=== PATIENT | male | born 1970 | race Caucasian/White ===

== ENCOUNTER 2017-06-27 17:02 | Emergency (ER) | payer MEDICARE, OTHER ==
[~2017-06-27] VITALS: Ht 177.8 cm; Wt 110.0 kg
[~2017-06-27 17:02] MED LIST: CLOP75TA35 PO; DEXL30CA3 PO; DOXE150C2 PO; FENO134C PO; FLO0.4C PO; GABA-338 PO; HYT1T PO; INDO50CA PO; METH-603 PO; OLME20TA15 PO
[2017-06-27 17:11] VITALS: BP 116/85
== END 2017-06-27 18:00 | disposition home or self-care (01) ==
LOC: ER 17:04
DX: S30.21XA Contusion of penis, initial encounter (principal); G89.29 Other chronic pain; I10 Essential (primary) hypertension; M54.9 Dorsalgia, unspecified; Z86.73 Personal history of transient ischemic attack (TIA), and cerebral infarction without residual deficits; Z88.2 Allergy status to sulfonamides; Z79.01 Long term (current) use of anticoagulants; X58.XXXA Exposure to other specified factors, initial encounter; Y93.89 Activity, other specified; Y92.89 Other specified places as the place of occurrence of the external cause; Y99.8 Other external cause status
CPT/HCPCS: 99281

== ENCOUNTER 2017-09-18 09:22 | Day surgery (SDC) | payer MEDICARE ==
[~2017-09-18 09:22] MED LIST changes: +CEPH500C5 PO
[2017-09-18] MEDS ORDERED: LIDOcaine 2% 5ml jelly ONE (09:51)
[2017-09-18] MEDS ORDERED: CIPR-259 PO (14:25)
== END 2017-09-18 10:38 | disposition home or self-care (01) ==
LOC: WOUND CARE 09:22
PROVIDERS: ATTEND Surgery
DX: L97.811 Non-pressure chronic ulcer of other part of right lower leg limited to breakdown of skin (principal); I10 Essential (primary) hypertension; F10.10 Alcohol abuse, uncomplicated; F17.200 Nicotine dependence, unspecified, uncomplicated; Z86.73 Personal history of transient ischemic attack (TIA), and cerebral infarction without residual deficits
CPT/HCPCS: 11042; A6021; A6206; A6209; A6446

== ENCOUNTER 2017-09-25 08:40 | Day surgery (SDC) | payer MEDICARE ==
[~2017-09-25 08:40] MED LIST changes: -CEPH500C5 PO; +CIPR-259 PO; -DOXE150C2 PO; -FENO134C PO; -FLO0.4C PO; -HYT1T PO; -INDO50CA PO; -METH-603 PO
[2017-09-25] MEDS ORDERED: LIDOcaine 2% 5ml jelly ONE (09:26)
== END 2017-09-25 10:18 | disposition home or self-care (01) ==
LOC: WOUND CARE 08:40
PROVIDERS: ATTEND Surgery
DX: L97.812 Non-pressure chronic ulcer of other part of right lower leg with fat layer exposed (principal); I10 Essential (primary) hypertension; F10.10 Alcohol abuse, uncomplicated; F17.200 Nicotine dependence, unspecified, uncomplicated; Z86.73 Personal history of transient ischemic attack (TIA), and cerebral infarction without residual deficits
CPT/HCPCS: 11042; A6021; A6206; A6212

== ENCOUNTER 2017-10-01 08:45 | Day surgery (SDC) | payer MEDICARE ==
[2017-10-01] MEDS ORDERED: LIDOcaine 2% 5ml jelly ONE (09:35)
== END 2017-10-01 09:56 | disposition home or self-care (01) ==
LOC: WOUND CARE 08:45
PROVIDERS: ATTEND Surgery
DX: S81.801D Unspecified open wound, right lower leg, subsequent encounter (principal); I10 Essential (primary) hypertension; F10.10 Alcohol abuse, uncomplicated; F17.200 Nicotine dependence, unspecified, uncomplicated; Z86.73 Personal history of transient ischemic attack (TIA), and cerebral infarction without residual deficits; X58.XXXD Exposure to other specified factors, subsequent encounter
CPT/HCPCS: 15271; A6209; A6222; A6446; Q4131; A6250

== ENCOUNTER 2017-10-08 08:51 | Outpatient (CLI) | payer MEDICARE ==
[~2017-10-08 08:51] MED LIST changes: -CIPR-259 PO
[2017-10-08] MEDS ORDERED: LIDOcaine 2% 5ml jelly ONE (09:29)
== END 2017-10-08 10:07 | disposition home or self-care (01) ==
LOC: WOUND CARE 08:51 → EDSTATUS 09:00 → WOUND CARE 10:07
PROVIDERS: ATTEND Surgery
DX: S81.801D Unspecified open wound, right lower leg, subsequent encounter (principal); I10 Essential (primary) hypertension; F10.10 Alcohol abuse, uncomplicated; F17.200 Nicotine dependence, unspecified, uncomplicated; Z86.73 Personal history of transient ischemic attack (TIA), and cerebral infarction without residual deficits; X58.XXXD Exposure to other specified factors, subsequent encounter
CPT/HCPCS: 99215; A6021; A6206; A6209; A6446

== ENCOUNTER 2017-10-15 08:46 | Day surgery (SDC) | payer MEDICARE ==
[2017-10-15] MEDS ORDERED: LIDOcaine 2% 5ml jelly ONE (10:02)
== END 2017-10-15 10:26 | disposition home or self-care (01) ==
LOC: WOUND CARE 08:46
PROVIDERS: ATTEND Surgery
DX: S81.801D Unspecified open wound, right lower leg, subsequent encounter (principal); I10 Essential (primary) hypertension; F10.10 Alcohol abuse, uncomplicated; F17.200 Nicotine dependence, unspecified, uncomplicated; Z86.73 Personal history of transient ischemic attack (TIA), and cerebral infarction without residual deficits; X58.XXXD Exposure to other specified factors, subsequent encounter
CPT/HCPCS: 15271; A6206; A6209; A6446; Q4131

== ENCOUNTER 2017-10-23 08:52 | Outpatient (CLI) | payer MEDICARE ==
[2017-10-23] MEDS ORDERED: LIDOcaine 2% 5ml jelly ONE (09:37)
== END 2017-10-23 10:16 | disposition home or self-care (01) ==
LOC: WOUND CARE 08:52
PROVIDERS: ATTEND Surgery
DX: S81.801D Unspecified open wound, right lower leg, subsequent encounter (principal); I10 Essential (primary) hypertension; F10.10 Alcohol abuse, uncomplicated; F17.200 Nicotine dependence, unspecified, uncomplicated; Z86.73 Personal history of transient ischemic attack (TIA), and cerebral infarction without residual deficits; X58.XXXD Exposure to other specified factors, subsequent encounter
CPT/HCPCS: 99215; A6021; A6206; A6446

== ENCOUNTER 2017-10-30 08:36 | Day surgery (SDC) | payer MEDICARE | END 2017-10-30 10:04 | disposition home or self-care (01) | LOC: WOUND CARE 08:36 | PROVIDERS: ATTEND Surgery | DX: S81.801D Unspecified open wound, right lower leg, subsequent encounter (principal); I10 Essential (primary) hypertension; F10.10 Alcohol abuse, uncomplicated; F17.200 Nicotine dependence, unspecified, uncomplicated; Z86.73 Personal history of transient ischemic attack (TIA), and cerebral infarction without residual deficits; X58.XXXD Exposure to other specified factors, subsequent encounter | CPT/HCPCS: 97597; A6021; A6206; A6212 ==

== ENCOUNTER 2018-11-08 18:29 | Emergency (ER) | payer MEDICAID, MEDICARE, OTHER ==
[~2018-11-08] VITALS: Ht 179.1 cm; Wt 105.0 kg
[2018-11-08] MEDS ORDERED: CEPH250T PO (21:36)
[2018-11-08] MEDS ORDERED: CLIN150C2 PO (21:36)
[2018-11-08 21:42] VITALS: BP 120/68
== END 2018-11-08 21:43 | disposition home or self-care (01) ==
LOC: ER 18:31
DX: L03.115 Cellulitis of right lower limb (principal); R00.0 Tachycardia, unspecified; I10 Essential (primary) hypertension; G89.29 Other chronic pain; F17.200 Nicotine dependence, unspecified, uncomplicated; Z79.2 Long term (current) use of antibiotics; Z79.899 Other long term (current) drug therapy; Z88.2 Allergy status to sulfonamides; Z98.890 Other specified postprocedural states; Z86.73 Personal history of transient ischemic attack (TIA), and cerebral infarction without residual deficits; Z86.14 Personal history of Methicillin resistant Staphylococcus aureus infection
CPT/HCPCS: 99283

== ENCOUNTER 2020-01-30 14:58 | Emergency (ER) | payer MEDICAID ==
[~2020-01-30] VITALS: Ht 177.8 cm; Wt 102.7 kg
[2020-01-30 15:06] VITALS: BP 116/64
== END 2020-01-30 15:35 | disposition home or self-care (01) ==
LOC: ER 14:58
DX: S01.90XA Unspecified open wound of unspecified part of head, initial encounter (principal); I10 Essential (primary) hypertension; G89.29 Other chronic pain; Z86.73 Personal history of transient ischemic attack (TIA), and cerebral infarction without residual deficits; Z98.890 Other specified postprocedural states; Z88.2 Allergy status to sulfonamides; Z79.899 Other long term (current) drug therapy; W18.09XA Striking against other object with subsequent fall, initial encounter; Y93.E1 Activity, personal bathing and showering; Y92.89 Other specified places as the place of occurrence of the external cause; Y99.8 Other external cause status
CPT/HCPCS: 99281

== ENCOUNTER 2020-02-16 04:50 | Emergency (ER) | payer MEDICAID ==
[~2020-02-16] VITALS: Ht 177.8 cm; Wt 110.0 kg
[2020-02-16 05:43] VITALS: BP 122/85
== END 2020-02-16 05:44 | disposition home or self-care (01) ==
LOC: ER 04:51
DX: S01.81XD Laceration without foreign body of other part of head, subsequent encounter (principal); I10 Essential (primary) hypertension; G89.29 Other chronic pain; F17.200 Nicotine dependence, unspecified, uncomplicated; Z86.73 Personal history of transient ischemic attack (TIA), and cerebral infarction without residual deficits; Z98.890 Other specified postprocedural states; Z88.2 Allergy status to sulfonamides; Z79.899 Other long term (current) drug therapy; X58.XXXD Exposure to other specified factors, subsequent encounter
CPT/HCPCS: 99281

== ENCOUNTER 2020-02-22 08:37 | Emergency (ER) | payer MEDICAID ==
[~2020-02-22] VITALS: Ht 177.8 cm; Wt 102.6 kg
[2020-02-22] MEDS ORDERED: LIDOcaine 1% 30ml preserv. free vial IJ ONE (09:45)
[2020-02-22 10:02] VITALS: BP 215/135
[2020-02-22] MEDS ORDERED: CEPH250T PO (10:30)
[2020-02-22] MEDS ORDERED: DOXY100C76 PO (10:30)
== END 2020-02-22 10:39 | disposition home or self-care (01) ==
LOC: ER 08:37
DX: N48.21 Abscess of corpus cavernosum and penis (principal); I10 Essential (primary) hypertension; G89.29 Other chronic pain; Z86.73 Personal history of transient ischemic attack (TIA), and cerebral infarction without residual deficits; Z98.890 Other specified postprocedural states; Z88.2 Allergy status to sulfonamides; Z79.899 Other long term (current) drug therapy
CPT/HCPCS: 10060; 99283

== ENCOUNTER 2020-03-09 09:16 | Emergency (ER) | payer MEDICAID ==
[~2020-03-09] VITALS: Ht 177.8 cm; Wt 99.1 kg
[2020-03-09 09:20] VITALS: BP 135/85
[2020-03-09] MEDS ORDERED: CEPH-572 PO (10:02)
[2020-03-09] MEDS ORDERED: DOXY-1 PO (10:02)
== END 2020-03-09 10:15 | disposition home or self-care (01) ==
LOC: ER 09:17
DX: N48.21 Abscess of corpus cavernosum and penis (principal); I10 Essential (primary) hypertension; G89.29 Other chronic pain; Z86.73 Personal history of transient ischemic attack (TIA), and cerebral infarction without residual deficits; Z79.899 Other long term (current) drug therapy; Z88.2 Allergy status to sulfonamides; Z79.2 Long term (current) use of antibiotics
CPT/HCPCS: 99283

== ENCOUNTER 2020-12-25 06:37 | Emergency (ER) | payer MEDICAID ==
[~2020-12-25] VITALS: Ht 177.8 cm; Wt 104.5 kg
[~2020-12-25 06:37] MED LIST changes: +CLOP75TA34 PO; -CLOP75TA35 PO
[2020-12-25] MEDS ORDERED: normal saline 1000ML IV soln IVB ONE (07:45)
[2020-12-25] MEDS ORDERED: phenobarbital inj 260 MG in normal saline 100ml IV soln 100 ML IV ONE (07:45)
[2020-12-25] MEDS ORDERED: thiamine inj. 100 MG in normal saline 100ml IV soln 99 ML IV ONE (07:45)
[2020-12-25] MEDS ORDERED: magnesium 2GM in 50ml NS 50 ML IV ONE (07:45)
[2020-12-25] MEDS ORDERED: thiamine 100mg/ml 2ml inj. IV ONE (08:00)
[2020-12-25 08:46] LABS: BASOPHILS # (AUTO) 0.1 X10'3 (0-0.2); BASOPHILS % (AUTO) 0.6 % (0-1); EOSINOPHILS % (AUTO) 0.4 % (0-6); HEMATOCRIT 42.1 % (42.0-52.0); HEMOGLOBIN 14.4 g/dl (14.0-17.9); LYMPHOCYTES # (AUTO) 1.7 X10'3 (1.1-4.8); LYMPHOCYTES % (AUTO) 16.3 % (21-51); MEAN CORPUSCULAR HEMOGLOBIN 31.5 PG (27.0-31.0); MEAN CORPUSCULAR HGB CONC 34.3 g/dL (33.0-36.5); MEAN PLATELET VOLUME 7.6 FL (7.4-10.4); MONOCYTES # (AUTO) 0.7 X10'3 (0-0.9); NEUTROPHILS # (AUTO) 7.9 X10'3 (1.8-7.7); NEUTROPHILS % (AUTO) 75.7 % (42-75); PLATELET COUNT 348 X10'3 (140-440); RED BLOOD COUNT 4.58 X10'6 (4.70-6.10); RED CELL DISTRIBUTION WIDTH 14.3 % (11.5-14.5); WHITE BLOOD COUNT 10.4 X10'3 (4.5-11.0)
[2020-12-25 08:54] LABS: ALANINE AMINOTRANSFERASE 40 U/L (12-78); ALBUMIN 3.9 G/DL (3.4-5.0); ALKALINE PHOSPHATASE 87 IU/L (46-116); ANION GAP 14 (8-16); ASPARTATE AMINO TRANSFERASE 38 U/L (10-37); BILIRUBIN,TOTAL 0.4 MG/DL (0.1-1.0); BLOOD UREA NITROGEN 27 MG/DL (7-18); BUN/CREATININE RATIO 26.2 (5.4-32.0); CHLORIDE 97 MMOL/L (99-107); CREATININE 1.03 MG/DL (0.60-1.10); ETHANOL < 0.010 GM/DL (0.0-0.010); GLUCOSE 96 MG/DL (70-104); MAGNESIUM 1.6 MG/DL (1.5-2.4); SODIUM 135 MMOL/L (135-145); TOTAL PROTEIN 7.8 G/DL (6.4-8.2); eGFR 76 ML/MIN
[2020-12-25 08:56] LABS: POTASSIUM 4.4 MMOL/L (3.5-5.1)
[2020-12-25] MEDS ORDERED: phenobarbital inj 130 MG in normal saline 100ml IV soln 100 ML IV ONE ×2 (09:30→10:10)
[2020-12-25] MEDS ORDERED: acetaminophen 325mg tablet PO ONE (09:45)
[2020-12-25] MEDS ORDERED: hydrALAZINE 20mg/ml inj. IV ONE (10:15)
[2020-12-25 13:06] VITALS: BP 141/100
== END 2020-12-25 13:08 | disposition home or self-care (01) ==
LOC: ER 06:38
DX: F10.230 Alcohol dependence with withdrawal, uncomplicated (principal); R11.2 Nausea with vomiting, unspecified; I10 Essential (primary) hypertension; G89.29 Other chronic pain; Z86.73 Personal history of transient ischemic attack (TIA), and cerebral infarction without residual deficits; Z98.890 Other specified postprocedural states; Z88.2 Allergy status to sulfonamides; Z79.899 Other long term (current) drug therapy; Y90.5 Blood alcohol level of 100-119 mg/100 ml
CPT/HCPCS: 36415; 80053; 80320; 83735; 85025; 93005; 96365; 96366; 96367; 96368; 96375; 99285; J0360; J2560; J3411; J3475; J7030

== ENCOUNTER 2022-02-26 10:05 | Emergency (ER) | payer MEDICAID ==
[~2022-02-26] VITALS: Ht 175.3 cm; Wt 107.0 kg
[2022-02-26] MEDS ORDERED: normal saline 1000ML IV soln IVB ONE (11:40)
[2022-02-26 11:59] LABS: BASOPHILS # (AUTO) 0.1 X10'3 (0-0.2); BASOPHILS % (AUTO) 0.8 % (0-1); EOSINOPHILS # (AUTO) 0.2 X10'3 (0-0.9); EOSINOPHILS % (AUTO) 2.4 % (0-6); HEMOGLOBIN 14.8 g/dl (14.0-17.9); LYMPHOCYTES # (AUTO) 2.1 X10'3 (1.1-4.8); LYMPHOCYTES % (AUTO) 31.6 % (21-51); MEAN CORPUSCULAR HEMOGLOBIN 33.3 PG (27.0-31.0); MEAN CORPUSCULAR HGB CONC 34.4 g/dL (33.0-36.5); MEAN CORPUSCULAR VOLUME 96.6 FL (78-98); MEAN PLATELET VOLUME 7.6 FL (7.4-10.4); MONOCYTES % (AUTO) 14.4 % (2-12); NEUTROPHILS # (AUTO) 3.4 X10'3 (1.8-7.7); NEUTROPHILS % (AUTO) 50.8 % (42-75); PLATELET COUNT 281 X10'3 (140-440); RED BLOOD COUNT 4.45 X10'6 (4.70-6.10); RED CELL DISTRIBUTION WIDTH 14.1 % (11.5-14.5); WHITE BLOOD COUNT 6.8 X10'3 (4.5-11.0)
[2022-02-26 12:15] LABS: ALANINE AMINOTRANSFERASE 25 U/L (12-78); ALBUMIN 3.3 G/DL (3.4-5.0); ALBUMIN/GLOBULIN RATIO 0.9 (1.1-1.5); ALKALINE PHOSPHATASE 85 IU/L (46-116); ANION GAP 9 (8-16); ASPARTATE AMINO TRANSFERASE 19 U/L (10-37); BILIRUBIN,TOTAL 0.3 MG/DL (0.1-1.0); BLOOD UREA NITROGEN 10 MG/DL (7-18); BUN/CREATININE RATIO 12.7 (5.4-32.0); CHLORIDE 102 MMOL/L (99-107); CREATININE 0.79 MG/DL (0.60-1.10); GLUCOSE 102 MG/DL (70-104); LIPASE < 50 U/L (73-393); POTASSIUM 3.7 MMOL/L (3.5-5.1); SODIUM 136 MMOL/L (135-145); TOTAL PROTEIN 6.9 G/DL (6.4-8.2); eGFR > 90 ML/MIN
--- NOTE | 2022-02-26 12:48 | NUR ---
PT WAS OFFERED AN URINAL FOR A UA SPECIMEN. PT REFUSED THE URINAL, AND ASKED TO USE THE BATHROOM. A HAT AND A SPECIMEN CUP WERE PROVIDED FOR THE PT, AND A DARK SPECIMEN WAS COLLECTED. PT STATES THAT THE SPECIMEN IS "URINE", HOWEVER IT SMELLS, AND APPEARS LIKE STOOL. WILL AWAIT LAB RESULTS BEFORE PROCEEDING WITH ALTERNATIVE METHODS TO OBTAIN URINE.
[2022-02-26 12:50] LABS: CLARITY,URINE CLEAR (Clear); GLUCOSE, URINE NEGATIVE (Neg); KETONES,URINE TRACE mg/dl (Neg); LEUKOCYTE ESTERASE ,URINE NEGATIVE (Neg); OCCULT BLOOD,URINE TRACE-INTACT (Neg); PROTEIN,URINE 100 mg/dl (Neg)
[2022-02-26 12:52] VITALS: BP 173/97
[2022-02-26 12:53] LABS: COLOR,URINE DARK YELLOW (Yellow); UA COLLECTION TYPE VOIDED
[2022-02-26 12:55] LABS: NITRITES, URINE NEGATIVE (Neg)
[2022-02-26 12:57] LABS: BACTERIA,URINE FEW /HPF (Neg); MUCUS STRANDS MODERATE /LPF (Neg); SQUAMOUS EPITHELIAL CELL,UR FEW /LPF (FEW)
--- NOTE | 2022-02-26 13:19 | NUR ---
COMFIRMED UA, AND RESULTS WERE RECIEVED. WILL ATTEMPT TO OBTAIN A STOOL SPECIMEN.
--- NOTE | 2022-02-26 13:54 | NUR ---
PT WAS GIVEN ANOTHER HAT FOR THE TOILET, AND WAS INSTRUCTED TO PROVIDE A STOOL SAMPLE TO SEND TO LAB. CONTENTS OBTAINED, AND SENT TO LAB. WILL WAIT FOR THE RESULTS.
[2022-02-26] MEDS ORDERED: azithromycin 250mg tablet PO ONE (14:15)
[2022-02-26 14:19] LABS: C DIFF SPECIMEN=DIARRHEA? ACCEPTABLE; C DIFFICILE TOXINS A&B NEGATIVE (Neg)
== END 2022-02-26 15:32 | disposition home or self-care (01) ==
LOC: ER 10:06
DX: I10 Essential (primary) hypertension (principal)
CPT/HCPCS: 36415; 80053; 81001; 83690; 85025; 87045; 87046; 87088; 87324; 87449; 96360; 99283; J7030

== ENCOUNTER 2024-02-18 09:28 | Outpatient (CLI) | payer MEDICAID | END 2024-02-18 23:59 | disposition home or self-care (01) | LOC: MRI02 09:28 | PROVIDERS: ATTEND Neuromusculoskeletal Medicine & OMM | DX: J32.0 Chronic maxillary sinusitis (principal); G44.321 Chronic post-traumatic headache, intractable | CPT/HCPCS: 70551 ==

== ENCOUNTER 2024-05-12 01:17 | Inpatient (IN) | payer MEDICAID ==
[2024-05-12] VITALS (8 sets, daily range): BP systolic 132–190; BP diastolic 78–128; PULSE 92–108; RESP 12–20; TEMP 97.7–98.9; O2SAT 91–98
[~2024-05-12] VITALS: Ht 175.3 cm; Wt 110.0 kg
[2024-05-12 01:48] LABS: BASOPHILS # (AUTO) 0.1 X10'3 (0-0.2); BASOPHILS % (AUTO) 1.2 % (0-1); EOSINOPHILS % (AUTO) 0.4 % (0-6); HEMATOCRIT 40.2 % (42.0-52.0); HEMOGLOBIN 13.1 g/dl (14.0-17.9); LYMPHOCYTES # (AUTO) 2.2 X10'3 (1.1-4.8); LYMPHOCYTES % (AUTO) 18.2 % (21-51); MEAN CORPUSCULAR HEMOGLOBIN 32.4 PG (27.0-31.0); MEAN CORPUSCULAR HGB CONC 32.6 g/dL (33.0-36.5); MEAN CORPUSCULAR VOLUME 99.1 FL (78-98); MEAN PLATELET VOLUME 7.5 FL (7.4-10.4); MONOCYTES # (AUTO) 0.7 X10'3 (0-0.9); MONOCYTES % (AUTO) 5.5 % (2-12); NEUTROPHILS # (AUTO) 8.9 X10'3 (1.8-7.7); NEUTROPHILS % (AUTO) 74.7 % (42-75); PLATELET COUNT 290 X10'3 (140-440); RED BLOOD COUNT 4.06 X10'6 (4.70-6.10); RED CELL DISTRIBUTION WIDTH 16.3 % (11.5-14.5); WHITE BLOOD COUNT 11.9 X10'3 (4.5-11.0)
[2024-05-12 02:11] LABS: ALANINE AMINOTRANSFERASE 29 U/L (12-78); ALBUMIN 3.4 G/DL (3.4-5.0); ALBUMIN/GLOBULIN RATIO 0.9 (1.1-1.5); ALKALINE PHOSPHATASE 101 IU/L (46-116); ANION GAP 14 (8-16); ASPARTATE AMINO TRANSFERASE 35 U/L (10-37); BILIRUBIN,TOTAL 0.3 MG/DL (0.1-1.0); BLOOD UREA NITROGEN 18 MG/DL (7-18); BUN/CREATININE RATIO 10.2 (10.0-20.0); CALCIUM 8.7 MG/DL (8.5-10.1); CHLORIDE 101 MMOL/L (99-107); CREATININE 1.76 MG/DL (0.60-1.10); GLUCOSE 105 MG/DL (70-104); POTASSIUM 3.9 MMOL/L (3.5-5.1); PRO BRAIN NATRIURETIC PEPTIDE 5254 PG/ML (0-125); SODIUM 138 MMOL/L (135-145); TOTAL CARBON DIOXIDE 22.9 MMOL/L (24-32); TOTAL PROTEIN 7.4 G/DL (6.4-8.2); eCRCL 47 ML/MIN; eGFR 40 ML/MIN
[2024-05-12] MEDS ORDERED: heparin 25,000 UNIT/250ml bag 250 ML IV PRN (02:55)
[2024-05-12] MEDS ORDERED: heparin 10,000 units/1 ML INJ IV ONE ×2 (02:55→03:00)
[2024-05-12] MEDS ORDERED: heparin 10,000 units/1 ML INJ IV PRN (03:00)
[2024-05-12 03:05] LABS: ETHANOL 170 MG/DL (<10); MAGNESIUM 2.1 MG/DL (1.5-2.4)
[2024-05-12 03:26] LABS: APTT 29 SECONDS (22-32); INR 1.1 INR
[2024-05-12] MEDS ORDERED: magnesium Cl slow-release 64mg tablet PO PRN (04:00)
[2024-05-12] MEDS ORDERED: magnesium hydroxide 30ml (MOM) UD suspension PO PRN (04:00)
[2024-05-12] MEDS ORDERED: morphine 2 MG/ML inj. syringe IV PRN (04:00)
[2024-05-12] MEDS ORDERED: magnesium sulf-water 4G/100mL 100 ML IV PRN (04:00)
[2024-05-12] MEDS ORDERED: potassium Cl 20 mEq SR tablet PO PRN ×2 (04:00)
[2024-05-12] MEDS ORDERED: potassium Cl 40MEQ/1/2NS 520ml 520 ML IV PRN (04:00)
[2024-05-12] MEDS ORDERED: mag hydrox/Alum hydrox/simeth 30ml oral suspension PO PRN (04:00)
[2024-05-12] MEDS ORDERED: magnesium sulf-water 2g/50mL 50 ML IV PRN (04:00)
[2024-05-12 05:01] LABS: POTASSIUM 3.8 MMOL/L (3.5-5.1)
[2024-05-12] MEDS: aspirin 81mg tab.chew PO ONE (05:09)
[2024-05-12] MEDS: DOXYCYCLINE 100MG CAPSULE PO STA (05:09)
[2024-05-12] MEDS ORDERED: PERFLUTREN PROTEIN-A MICROSPHR (Optison) 0.22 MG/ML 3ML VIAL IV PRN (05:10)
[2024-05-12] MEDS: normal saline 1000ml 1,000 ML IV SCH (05:23)
[2024-05-12 05:46] LABS: URINE AMPHETAMINE SCREEN POSITIVE (Neg); URINE BARBITUATE SCREEN NEGATIVE (Neg); URINE BENZODIAZEPINES SCREEN NEGATIVE (Neg); URINE CANNABINOID SCREEN POSITIVE (Neg); URINE COCAINE SCREEN NEGATIVE (Neg); URINE METHADONE SCREEN NEGATIVE (Neg); URINE OPIATE SCREEN POSITIVE (Neg); URINE PHENCYCLIDINE SCREEN NEGATIVE (Neg)
[2024-05-12] MEDS ORDERED: PROC10TA97 (05:51)
[2024-05-12] MEDS ORDERED: HYDR-3972 PO (05:51)
[2024-05-12] MEDS ORDERED: TIZA-205 PO (05:51)
[2024-05-12] MEDS ORDERED: QUET100T34 PO (05:51)
[2024-05-12] MEDS ORDERED: ESCI20TA39 PO (05:52)
[2024-05-12] MEDS ORDERED: ESCI-8 PO (05:52)
[2024-05-12] MEDS ORDERED: APIX5TAB3 PO (05:53)
[2024-05-12] MEDS ORDERED: TIOT4MIS2 INH (05:54)
[2024-05-12] MEDS: morphine 2 MG/ML inj. syringe IV PRN (07:04)
[2024-05-12] MEDS: folic acid 1mg/0.2ml inj IV SCH (07:11)
[2024-05-12] MEDS: multivitamins, therapeutics tablet PO SCH (07:13)
[2024-05-12] MEDS: thiamine 100mg/ml 2ml inj. IV SCH (07:13)
[2024-05-12] MEDS: docusate sod 100mg capsule PO SCH (07:13)
[2024-05-12] MEDS: K and/or MAG REPLACEMENT MC SCH (08:00)
[2024-05-12] MEDS ORDERED: HYDROmorphone inj. 0.5 MG/0.5 ML DISP.SYRIN IV PRN (08:40)
[2024-05-12] MEDS: HYDROmorphone 1 mg/ml syringe IV PRN (09:04)
[2024-05-12] MEDS: LORazepam 2 mg/ml vial IV PRN (12:10)
[2024-05-12] MEDS: hydrALAZINE 20mg/ml inj. IV PRN (12:10)
[2024-05-12] MEDS: nicotine 21mg patch - 24 hr TD SCH (14:39)
[2024-05-12] MEDS: pantoprazole 40mg Tablet.DR PO SCH (20:35)
[2024-05-12] MEDS: quetiapine 100mg tablet PO SCH (20:36)
[2024-05-12] MEDS: apixaban 5mg tablet PO SCH (20:37)
[2024-05-12] MEDS: gabapentin 300mg capsule PO SCH (20:37)
[2024-05-12] MEDS: HYDROcodone/acetaminophen 10/325mg tab PO PRN (20:38)
[2024-05-12] MEDS: tizanidine 4mg tablet PO SCH (20:41)
[2024-05-12] MEDS: LORazepam 1 MG tablet PO PRN (22:38)
[2024-05-12] MEDS: acetaminophen 325mg tablet PO PRN (22:38)
[2024-05-13] VITALS (14 sets, daily range): BP systolic 117–182; BP diastolic 78–114; PULSE 74–98; RESP 12–26; TEMP 96.8–98; O2SAT 93–99
[2024-05-13 07:01] LABS: BASOPHILS % (AUTO) 0.5 % (0-1); EOSINOPHILS # (AUTO) 0.2 X10'3 (0-0.9); HEMATOCRIT 35.8 % (42.0-52.0); HEMOGLOBIN 12.1 g/dl (14.0-17.9); LYMPHOCYTES # (AUTO) 2.2 X10'3 (1.1-4.8); MONOCYTES # (AUTO) 0.6 X10'3 (0-0.9)
[2024-05-13 07:03] LABS: EOSINOPHILS % (AUTO) 2.7 % (0-6); LYMPHOCYTES % (AUTO) 28.4 % (21-51); MEAN CORPUSCULAR HGB CONC 33.8 g/dL (33.0-36.5); MEAN CORPUSCULAR VOLUME 97.5 FL (78-98); MEAN PLATELET VOLUME 8.3 FL (7.4-10.4); MONOCYTES % (AUTO) 8.2 % (2-12); NEUTROPHILS # (AUTO) 4.7 X10'3 (1.8-7.7); NEUTROPHILS % (AUTO) 60.2 % (42-75); PLATELET COUNT 238 X10'3 (140-440); RED BLOOD COUNT 3.67 X10'6 (4.70-6.10); RED CELL DISTRIBUTION WIDTH 15.6 % (11.5-14.5); WHITE BLOOD COUNT 7.7 X10'3 (4.5-11.0)
[2024-05-13 07:09] LABS: INR 1.1 INR; PROTHROMBIN TIME 11.5 SECONDS (9.0-12.0)
[2024-05-13 07:10] LABS: ALANINE AMINOTRANSFERASE 28 U/L (12-78); ALBUMIN/GLOBULIN RATIO 0.8 (1.1-1.5); ALKALINE PHOSPHATASE 94 IU/L (46-116); ANION GAP 4 (8-16); ASPARTATE AMINO TRANSFERASE 29 U/L (10-37); BILIRUBIN,TOTAL 0.5 MG/DL (0.1-1.0); BLOOD UREA NITROGEN 14 MG/DL (7-18); BUN/CREATININE RATIO 18.7 (10.0-20.0); CHLORIDE 108 MMOL/L (99-107); CREATININE 0.75 MG/DL (0.60-1.10); GLUCOSE 120 MG/DL (70-104); LIPASE 11 U/L (16-77); MAGNESIUM 1.9 MG/DL (1.5-2.4); POTASSIUM 3.9 MMOL/L (3.5-5.1); SODIUM 142 MMOL/L (135-145); TOTAL CARBON DIOXIDE 30.2 MMOL/L (24-32); TOTAL PROTEIN 6.7 G/DL (6.4-8.2); eCRCL 111 ML/MIN; eGFR > 90 ML/MIN
[2024-05-13] MEDS: ipratropium 0.5 MG/2.5ML nebule IH SCH (08:23)
[2024-05-13] MEDS: ESCITALOPRAM 10 mg tablet 10 MG TABLET PO SCH ×2 (08:47)
[2024-05-13] MEDS ORDERED: NICO-687 TD (11:37)
[2024-05-14] VITALS (17 sets, daily range): BP systolic 148–185; BP diastolic 80–112; PULSE 71–108; RESP 16–22; TEMP 97–98.6; O2SAT 90–98
[2024-05-14 06:05] LABS: BASOPHILS # (AUTO) 0.1 X10'3 (0-0.2); BASOPHILS % (AUTO) 0.7 % (0-1); EOSINOPHILS # (AUTO) 0.2 X10'3 (0-0.9); EOSINOPHILS % (AUTO) 2.6 % (0-6); HEMATOCRIT 36.9 % (42.0-52.0); HEMOGLOBIN 12.4 g/dl (14.0-17.9); LYMPHOCYTES # (AUTO) 1.9 X10'3 (1.1-4.8); LYMPHOCYTES % (AUTO) 23.6 % (21-51); MEAN CORPUSCULAR HEMOGLOBIN 32.8 PG (27.0-31.0); MEAN CORPUSCULAR HGB CONC 33.5 g/dL (33.0-36.5); MEAN CORPUSCULAR VOLUME 97.7 FL (78-98); MONOCYTES # (AUTO) 0.6 X10'3 (0-0.9); MONOCYTES % (AUTO) 6.9 % (2-12); NEUTROPHILS # (AUTO) 5.5 X10'3 (1.8-7.7); NEUTROPHILS % (AUTO) 66.2 % (42-75); PLATELET COUNT 234 X10'3 (140-440); RED BLOOD COUNT 3.78 X10'6 (4.70-6.10); RED CELL DISTRIBUTION WIDTH 15.9 % (11.5-14.5); WHITE BLOOD COUNT 8.3 X10'3 (4.5-11.0)
[2024-05-14 06:17] LABS: ALANINE AMINOTRANSFERASE 27 U/L (12-78); ALBUMIN/GLOBULIN RATIO 0.8 (1.1-1.5); ALKALINE PHOSPHATASE 98 IU/L (46-116); ANION GAP 6 (8-16); ASPARTATE AMINO TRANSFERASE 22 U/L (10-37); BILIRUBIN,TOTAL 0.5 MG/DL (0.1-1.0); BLOOD UREA NITROGEN 15 MG/DL (7-18); BUN/CREATININE RATIO 24.2 (10.0-20.0); CALCIUM 8.9 MG/DL (8.5-10.1); CHLORIDE 104 MMOL/L (99-107); CREATININE 0.62 MG/DL (0.60-1.10); GLUCOSE 93 MG/DL (70-104); LIPASE 12 U/L (16-77); MAGNESIUM 1.8 MG/DL (1.5-2.4); PHOSPHORUS 3.9 MG/DL (2.3-4.5); POTASSIUM 4.4 MMOL/L (3.5-5.1); SODIUM 139 MMOL/L (135-145); TOTAL CARBON DIOXIDE 28.7 MMOL/L (24-32); TOTAL PROTEIN 6.8 G/DL (6.4-8.2); eCRCL 135 ML/MIN; eGFR > 90 ML/MIN
[2024-05-14 06:47] LABS: INR 1.1 INR; PROTHROMBIN TIME 11.4 SECONDS (9.0-12.0)
[2024-05-14] MEDS: ondansetron/PF 4mg/2ml inj IV PRN (15:58)
[2024-05-14] MEDS: hydrALAZINE 20mg/ml inj. IV ONE (18:00)
[2024-05-14] MEDS: cloNIDine 0.1 mg tablet PO ONE (18:05)
[2024-05-14] MEDS: cloNIDine 0.1 mg tablet PO PRN (21:30)
[2024-05-15] VITALS (7 sets, daily range): BP systolic 132; BP diastolic 96; PULSE 94–102; RESP 15–19; TEMP 97.4; O2SAT 78–98
[2024-05-15 06:30] LABS: BASOPHILS % (AUTO) 0.3 % (0-1); EOSINOPHILS % (AUTO) 0.1 % (0-6); HEMATOCRIT 36.4 % (42.0-52.0); HEMOGLOBIN 12.4 g/dl (14.0-17.9); LYMPHOCYTES % (AUTO) 11.4 % (21-51); MEAN CORPUSCULAR HEMOGLOBIN 33.3 PG (27.0-31.0); MEAN CORPUSCULAR HGB CONC 34.2 g/dL (33.0-36.5); MEAN CORPUSCULAR VOLUME 97.4 FL (78-98); MEAN PLATELET VOLUME 8.2 FL (7.4-10.4); MONOCYTES # (AUTO) 0.4 X10'3 (0-0.9); MONOCYTES % (AUTO) 4.3 % (2-12); NEUTROPHILS # (AUTO) 7.4 X10'3 (1.8-7.7); NEUTROPHILS % (AUTO) 83.9 % (42-75); PLATELET COUNT 247 X10'3 (140-440); RED BLOOD COUNT 3.74 X10'6 (4.70-6.10); RED CELL DISTRIBUTION WIDTH 15.7 % (11.5-14.5); WHITE BLOOD COUNT 8.8 X10'3 (4.5-11.0)
[2024-05-15 06:40] LABS: INR 1.1 INR; PROTHROMBIN TIME 11.3 SECONDS (9.0-12.0)
[2024-05-15 06:52] LABS: ALANINE AMINOTRANSFERASE 24 U/L (12-78); ALBUMIN 3.1 G/DL (3.4-5.0); ALBUMIN/GLOBULIN RATIO 0.8 (1.1-1.5); ALKALINE PHOSPHATASE 98 IU/L (46-116); ANION GAP 5 (8-16); ASPARTATE AMINO TRANSFERASE 19 U/L (10-37); BILIRUBIN,TOTAL 0.7 MG/DL (0.1-1.0); BLOOD UREA NITROGEN 10 MG/DL (7-18); BUN/CREATININE RATIO 18.5 (10.0-20.0); CALCIUM 8.6 MG/DL (8.5-10.1); CHLORIDE 102 MMOL/L (99-107); CREATININE 0.54 MG/DL (0.60-1.10); GLUCOSE 106 MG/DL (70-104); LIPASE 11 U/L (16-77); PHOSPHORUS 4.3 MG/DL (2.3-4.5); POTASSIUM 4.1 MMOL/L (3.5-5.1); SODIUM 139 MMOL/L (135-145); TOTAL CARBON DIOXIDE 32.2 MMOL/L (24-32); eCRCL 155 ML/MIN; eGFR > 90 ML/MIN
[2024-05-15] MEDS: thiamine 100mg tablet PO SCH (08:14)
[2024-05-16] MEDS ORDERED: folic acid 1mg tablet PO SCH (08:00)
== END 2024-05-15 14:48 | disposition home health service (06) | DRG 204 ==
LOC: ER 01:17 → ED HOLD 04:02 → PCU 3S 10:55
PROVIDERS: ADMIT Internal Medicine Sleep Medicine; ATTEND Family Medicine
DX: R55 Syncope and collapse (principal); I21.A1 Myocardial infarction type 2; I27.20 Pulmonary hypertension, unspecified; I50.9 Heart failure, unspecified; J44.89 Other specified chronic obstructive pulmonary disease; S80.212A Abrasion, left knee, initial encounter; X58.XXXA Exposure to other specified factors, initial encounter; G89.29 Other chronic pain; M54.9 Dorsalgia, unspecified; F15.90 Other stimulant use, unspecified, uncomplicated; F10.20 Alcohol dependence, uncomplicated; N17.9 Acute kidney failure, unspecified; E66.01 Morbid (severe) obesity due to excess calories; G62.9 Polyneuropathy, unspecified; I11.0 Hypertensive heart disease with heart failure; Z79.01 Long term (current) use of anticoagulants; Z88.2 Allergy status to sulfonamides; Z79.899 Other long term (current) drug therapy; Z86.73 Personal history of transient ischemic attack (TIA), and cerebral infarction without residual deficits; Z86.711 Personal history of pulmonary embolism; Y93.89 Activity, other specified; Y92.89 Other specified places as the place of occurrence of the external cause; Y99.8 Other external cause status
CPT/HCPCS: 36415; 70450; 71045; 80053; 80305; 80320; 83690; 83735; 83880; 84100; 84132; 84484; 85025; 85379; 85610; 85730; 87081; 93005; 93306; 93930; 94640; 94760; 97161; 97530; 97535; 99291; A4615; G0378; J0360; J1171; J2060; J2270; J2405; J3411; J3490; J7030; J7120